=== PATIENT | male | born 1980 | race Caucasian/White ===

== ENCOUNTER 2016-11-02 20:25 | Emergency (ER) | payer OTHER ==
[~2016-11-02] VITALS: Ht 185.4 cm; Wt 79.4 kg
[2016-11-02] MEDS ORDERED: ASPIRIN ONE (20:48)
[2016-11-02] MEDS ORDERED: ASPIRIN PO STA (20:50)
--- NOTE | 2016-11-02 20:55 | NUR ---
ASA PATIENT GEVEN ASA 325 PO SEE EMAR WITH SMALL SIP OF WATER.
--- NOTE | 2016-11-02 20:55 | NUR ---
ARRIVAL PATIENT ARRIVED TO ER WITH COMPLAINING OF LEFT CHEST PAIN RADIATING DOWN HIS LEFT ARM. HE RATES PAIN @ 10 FROM SCALE 0-10. NO S/S OF DISTRESS NOTED. WHILE PATIENT C/O PAIN HIM AND HIS ARE LAUGHING AND VISTING. WILL CONTINUE TO MONITOR.
[2016-11-02 21:08] LABS: BASOPHIL # 0.1 10^3/uL (0.0-0.1); BASOPHIL % 0.5 % (0.0-0.2); EOSINOPHIL # 0.3 10^3/uL (0.0-0.2); HEMOGLOBIN 14.5 g/dL (13.9-16.3); LYMPHOCYTES % 22.7 % (24.0-44.0); MEAN CELL HGB 29.8 pg (26-34); MEAN CORP VOLUME 87.7 fL (78-100); MEAN PLATELET VOLUME 10.3 fL (7.8-11.0); MONOCYTES # 0.9 10^3/uL (0.3-0.8); NEUTROPHIL # 8.9 10^3/uL (1.8-7.7); NEUTROPHILS % 67.6 % (41.0-85.0); WHITE BLOOD CELL 13.2 10^3/uL (4.5-11.0)
[2016-11-02 21:32] LABS: ALANINE AMINOTRANSFERASE 40 U/L (12-78); ALKALINE PHOSPHATASE 74 U/L (50-136); ASPARTATE AMINO TRANSFERASE 22 U/L (0-35); CALCIUM 9.1 mg/dL (8.4-10.5); CARBON DIOXIDE 25.3 mmol/L (20.0-32); GLUCOSE 138 mg/dL (70-110)
--- NOTE | 2016-11-02 21:35 | ER.PDOC ---
General Chief Complaint: Chest Pain-Cardiac Nature Stated Complaint: CHEST PAIN Time seen by MD: 21:10 Source: patient, family Exam Limitations: no limitations History of Present Illness Initial Comments 36 year old white male with chronic back pain comes in with left anterior chest pain. Started going to the gym last week and does mostly cardio exercises. For the last three days, patient started experiencing on and off anterior left chest wall pain with radiation to the left arm associated with dizziness and weakness. Non exertional and typically getting worse. It has reproducible quality on local palpation and movement. No shortness of breath. Mild fever Timing/Duration: other (three days) Severity/Quality: severe 1 - reproducible chest wall pain Radiation: arms (left arm) Activities at Onset: rest Prior CP/Workup: No Prior Chest Pain Nitro Today/Relief: No Nitro Taken Today Aspirin Today: No Aspirin Today Associated Symptoms: dizziness, weakness Allergies: Coded Allergies: No Known Allergies (Unverified , 02/06/16) Past Medical History Medical History: other (back pain) Surgical History: no surgical history Family History Significant Family History: no pertinent family hx Social History Smoking: cigarettes Alcohol Use: none Drug Use: none Constitutional: denies no symptoms reported, denies see HPI, denies chills, denies diaphoresis, denies fever, denies malaise, denies weakness, denies other EENTM: denies no symptoms reported, denies see HPI, denies eye pain, denies blurred vision, denies tearing, denies double vision, denies ear pain, denies ear discharge, denies nose pain, denies nose congestion, denies throat pain, denies throat swelling, denies mouth pain, denies mouth swelling, denies other Respiratory: denies no symptoms reported, denies see HPI, denies cough, denies orthopnea, denies shortness of breath, denies SOB with exertion, denies SOB at rest, denies stridor, denies wheezing, denies other Cardiovascular: see HPI Gastrointestinal: denies no symptoms reported, denies see HPI, denies abdomen distended, denies abdominal pain, denies blood streaked bowels, denies constipated, denies diarrhea, denies difficulty swallowing, denies nausea, denies poor appetite, denies poor fluid intake, denies rectal bleeding, denies vomiting, denies other Genitourinary: denies no symptoms reported, denies see HPI, denies burning, denies dysuria, denies discharge, denies frequency, denies flank pain, denies hematuria, denies incontinence, denies pain, denies urgency, denies other Musculoskeletal: other (chronic back pain) Skin: denies no symptoms reported, denies see HPI, denies change in color, denies change in hair/nails, denies dryness, denies lesions, denies lumps, denies rash, denies other Psychiatric/Neurological: denies no symptoms reported, denies see HPI, denies anxiety, denies depressed, denies emotional problems, denies headache, denies numbness, denies paresthesia, denies pre-existing deficit, denies seizure, denies tingling, denies tremors, denies weakness, denies other Endocrine: denies no symptoms reported, denies see HPI, denies excessive sweating, denies flushing, denies intolerance to cold, denies intolerance to heat, denies increased hunger, denies increased thrist, denies increased urine, denies unexplained weight gain, denies unexplaned weight loss, denies other Hematologic/Lymphatic: denies no symptoms reported, denies see HPI, denies anemia, denies blood clots, denies easy bleeding, denies easy bruising, denies swollen glands, denies other Physical Exam General Appearance: No Apparent Distress, WD/WN HEENT: PERRL/EOMI, Normal ENT Inspection, TMs Normal, Pharynx Normal Neck: Non-Tender, Full Range of Motion, Supple, Normal Inspection Respiratory: chest non-tender, lungs clear, normal breath sounds, no respiratory distress, no accessory muscle use Cardiovascular: Normal Peripheral Pulses, Regular Rate, Rhythm, No Edema, No Gallop, No JVD, No Murmur, Other (left anterior chest wall tenderness) Gastrointestinal: Normal Bowel Sounds, No Organomegaly, No Pulsatile Mass, Non Tender, Soft Rectal: Normal Exam Extremities: Normal Range of Motion, Non-Tender, Normal Inspection, No Pedal Edema, No Calf Tenderness, Normal Capillary Refill 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, No Motor/Sensory Deficits, Alert, Normal Mood/Affect, Oriented x 3 Skin: Normal Color, Warm/Dry Lymphatic: No Adenopathy Results/Orders Results/Orders Laboratory Tests Test 11/02/16 20:55 White Blood Count 13.2 10^3/uL (4.5-11.0) Red Blood Count 4.86 10^6/uL (4.50-5.90) Hemoglobin 14.5 g/dL (13.9-16.3) Hematocrit 42.6 % (37.0-53.0) Mean Corpuscular Volume 87.7 fL (78-100) Mean Corpuscular Hemoglobin 29.8 pg (26-34) Mean Corpuscular Hemoglobin Concent 34.0 g/dL (33-37) Red Cell Distribution Width 13.0 % (11.5-14.5) Platelet Count 287 10^3/uL (150-400) Mean Platelet Volume 10.3 fL (7.8-11.0) Neutrophils (%) (Auto) 67.6 % (41.0-85.0) Lymphocytes (%) (Auto) 22.7 % (24.0-44.0) Monocytes (%) (Auto) 7.0 % (5.0-12.0) Neutrophils # (Auto) 8.9 10^3/uL (1.8-7.7) Lymphocytes # (Auto) 3.0 10^3/uL (1.0-4.8) Monocytes # (Auto) 0.9 10^3/uL (0.3-0.8) Absolute Immature Granulocyte (auto 0.03 10^3 u/L (0-2) Eosinophils % 2.0 % (0.0-5.0) Basophils % 0.5 % (0.0-0.2) Basophils # 0.1 10^3/uL (0.0-0.1) Eosinophil Count 0.3 10^3/uL (0.0-0.2) Percent Immature Gran (Cell Imm) 0.20 % (0.00-0.50) Helicobacter pylori Screen NEGATIVE (NEGATIVE) Administered Medications Medications (Trade) Dose Ordered Sig/Vern Route PRN Reason Start Time Stop Time Status Last Admin Dose Admin Aspirin (Aspirin) 325 mg STAT STAT PO 11/02/16 20:50 11/02/16 20:51 DC 11/02/16 20:52 Progress Progress Castor better on recheck No abnormal heart rhythm noted Course Blood Pressure Systolic: 136 Blood Pressure Diastolic: 86 Blood Pressure Mean: 103 Departure Time of Disposition: 22:30 Disposition: HOME, SELF-CARE Impression: Primary Impression: Chest pain Condition: Improved Referrals: LEO DACOSTA CREDIT COLLECTIONS CLERK (PCP) PRIMARY CARE PROVIDER Additional Instructions: Follow up PCP RTER prn Continue hydrocodone Add Diclofenac 50 mg po bid prn Warm compress Problem Qualifiers Primary Impression: Chest pain Chest pain type: other chest pain Qualified Codes: R07.89 - Other chest pain YAIMA AUGUST MD Nov 02, 2016 21:35
[2016-11-02] MEDS ORDERED: TORADOL ONE (21:40)
[2016-11-02] MEDS ORDERED: TORADOL IV STA (21:40)
--- NOTE | 2016-11-02 21:40 | NUR ---
PAIN MEDICATION DR. AUGUST NOTIFIED OF PATIENTS UNRELAVED PAIN. ORDERS RECIEVED AND PAIN MEDICATION GIVEN SEE EMAR.
[2016-11-02 22:06] LABS: UR BENZODIAZEPINE QUAL NEGATIVE (NEGATIVE); UR COCAINE QUAL NEGATIVE (NEGATIVE)
--- NOTE | 2016-11-02 22:08 | DIREP ---
PROCEDURE:CHEST 1 VIEW COMPARISON:None. INDICATIONS:chest pain FINDINGS: LUNGS/PLEURA:The lungs are incompletely inflated, but clear. No effusions. VASCULATURE:Normal. Unremarkable pulmonary vasculature. CARDIAC:Normal. No cardiac silhouette abnormality or cardiomegaly. MEDIASTINUM:Normal. No visible mass or adenopathy. BONES:Normal. No fracture or visible bony lesion. OTHER:Negative. CONCLUSION:Normal examination. Dictated by: Eder Bowling III, MD on 11/02/2016 at 10:05 PM
[2016-11-02] MEDS ORDERED: HYDR-3014 PO (22:30)
[2016-11-02] MEDS ORDERED: CYCL10TA2 PO (22:30)
[2016-11-02] MEDS ORDERED: ACET-687 PO (22:31)
--- NOTE | 2016-11-02 22:45 | NUR ---
DISCHARGE DISCHARGE INSTRUCTIONS WITH PRESCRIPTION GIVEN TO PATIENT AND WITH VERBAL UNDERSTANDING AND NO QUESTIONS ASKED. PATIENT AND DENY NEEDS @ THIS TIME. ALSO EDUCATED PATIENT TO RETURN TO ER IF NEEDED.
[2016-11-02 22:49] VITALS: BP 134/76
== END 2016-11-02 22:46 | disposition home or self-care (01) ==
LOC: ER 20:25
DX: R07.89 Other chest pain (principal); R42 Dizziness and giddiness; R53.1 Weakness; F17.210 Nicotine dependence, cigarettes, uncomplicated
CPT/HCPCS: 36415; 71010; 80053; 80307; 82550; 82553; 83880; 84484; 85025; 85379; 85610; 85730; 86677; 93005; 96374; 99285; J1885

== ENCOUNTER → 2016-12-02 | Outpatient (CLI) | payer MEDICARE, OTHER ==
[~2016-12-02] MED LIST: ACET-687 PO; CYCL10TA2 PO; HYDR-3014 PO
[2016-12-02 17:26] LABS: BILIRUBIN,URINE NEGATIVE (NEGATIVE); UROBILINOGEN,URINE NORMAL (NEGATIVE)
[2016-12-02 17:30] LABS: BASOPHIL # 0.1 10^3/uL (0.0-0.1); BASOPHIL % 0.5 % (0.0-0.2); EOSINOPHIL # 0.3 10^3/uL (0.0-0.2); EOSINOPHIL % 2.2 % (0.0-5.0); HEMOGLOBIN 13.8 g/dL (13.9-16.3); LYMPHOCYTES # 2.9 10^3/uL (1.0-4.8); LYMPHOCYTES % 25.1 % (24.0-44.0); MEAN CELL HGB 29.1 pg (26-34); MEAN CELL HGB CONCENTRATION 32.4 g/dL (33-37); MEAN CORP VOLUME 89.9 fL (78-100); MEAN PLATELET VOLUME 9.7 fL (7.8-11.0); MONOCYTES % 9.1 % (5.0-12.0); NEUTROPHIL # 7.2 10^3/uL (1.8-7.7); NEUTROPHILS % 62.6 % (41.0-85.0); RED CELL DISTRIBUTION WIDTH 13.9 % (11.5-14.5); WHITE BLOOD CELL 11.5 10^3/uL (4.5-11.0)
[2016-12-02 17:32] LABS: APPEARANCE,URINE CLEAR (CLEAR); UA COLOR YELLOW (YELLOW)
[2016-12-02 17:36] LABS: CALCIUM 9.2 mg/dL (8.4-10.5); CARBON DIOXIDE 30.3 mmol/L (20.0-32)
--- NOTE | 2016-12-02 17:45 | DIREP ---
PROCEDURE:XRAY SPINE LUMBAR 2-3 VWS COMPARISON:[facility], , XRAY SPINE LUMBAR 2-3 VWS, 05/02/2016, 01:48 PM. INDICATIONS:LOWER BACK PAIN, X 6 YEARS TECHNIQUE:AP, lateral, and coned down lateral views of the lumbar spine are provided. FINDINGS: ALIGNMENT:Normal. VERTEBRAE:Anterior posterior fusion changes at L5-S1 with right-sided pedicle screws and attached rods present. Graft present in the L5-S1 disc space. Vertebral body heights are normal. DISK SPACES:Normal. SPONDYLOLISTHESIS:None. SACROILIAC JOINTS:Normal. OTHER:Normal. CONCLUSION:Postsurgical changes and surgical hardware at L5-S1. No abnormalities demonstrated. No significant change since the prior examination. Dictated by: Ruddy Stauffer M.D. on 12/02/2016 at 05:43 PM
== END | disposition home or self-care (01) ==
LOC: LAB 16:54
PROVIDERS: ATTEND Internal Medicine
DX: M54.5 Low back pain (principal); Z79.899 Other long term (current) drug therapy; Z79.891 Long term (current) use of opiate analgesic
CPT/HCPCS: 36415; 72100; 80053; 81002; 83036; 85025

== ENCOUNTER → 2017-02-10 | Outpatient (CLI) | payer OTHER ==
[~2017-02-10] MED LIST changes: -HYDR-3014 PO; +HYDR-3105 PO
--- NOTE | 2017-02-10 13:03 | DIREP ---
PROCEDURE:MRI SPINE LUMBAR W&W/O TECHNIQUE:Axial T1 and T2; sagittal T1, T2 and inversion recovery; coronal T2 weighted sequences were obtained of the lumbar spine. Gadolinium was administered intravenously and additional axial T1, sagittal T1 and sagittal T1 fat sat sequences were obtained. COMPARISON:None. INDICATIONS:SPONDYLOSIS, LOW BACK PAIN FINDINGS: ALIGNMENT:Normal. VERTEBRAE:The patient has had left hemilaminectomy on the left. There are pedicle screws present on the right at L5 and S1. There is no fracture or compression deformity. PARASPINAL AREA:Normal. OTHER:The conus medullaris is normal in signal and morphology and ends at the distal L1 level. LUMBAR DISC LEVELS T12-L1:Normal. L1-L2:Normal. L2-L3:Normal. L3-L4:Normal. L4-L5:Normal. L5-S1:The patient has had left shireen laminectomy. Disc prosthesis is in place. There are Modic type 2 reactive endplate changes. There is no posterior disc pathology. There is no central canal or foraminal stenosis. Postsurgical scarring is seen at the site of the left hemilaminectomy and along the left side of the central canal series 1101, image 12. The scarring causes obliteration of the epidural fat adjacent to the left S1 root in the lateral recess series 801 image 11. CONCLUSION: 1. The patient has had prior surgery at the L5-S1 levels as described above. 2. Scarring is present at the operative site at the left shireen laminectomy and along the left side of the spinal canal at the L5 level. There is potential irritation of the left S1 root in the lateral recess. 3. There is no evidence of recurrent herniated disc. There is no focal disc protrusion. There is no central canal or foraminal stenosis. Dictated by: Eric Bush M.D. on 02/10/2017 at 12:53 PM
== END | disposition home or self-care (01) ==
LOC: RAD 01-24 08:00
PROVIDERS: ATTEND Internal Medicine
DX: M47.816 Spondylosis without myelopathy or radiculopathy, lumbar region (principal)
CPT/HCPCS: 72158; A9579